=== PATIENT | female | born 1975 | race Caucasian/White ===

== ENCOUNTER 2017-07-25 16:51 | Emergency (ER) | payer OTHER ==
--- NOTE | 2017-07-25 17:20 | UC ---
Respiratory Complaint HPI - HPI Summary HPI Summary: 42 year old female presents with complains of cough and chest congestion. - History of Current Complaint Stated Complaint: COUGH Time Seen by Provider: 07/25/17 17:19 Hx Obtained From: Patient Onset/Duration: Sudden Onset Severity Initially: Moderate Severity Currently: Moderate - Allergies/Home Medications Allergies/Adverse Reactions: Allergies Allergy/AdvReac Type Severity Reaction Status Date / Time Sulfa Antibiotics Allergy Hives Verified 07/25/17 17:30 Review of Systems Constitutional: Negative Skin: Negative Eyes: Negative ENT: Nasal Discharge, Sinus Congestion, Sinus Pain/Tenderness Respiratory: Cough Cardiovascular: Negative Gastrointestinal: Negative Genitourinary: Negative Motor: Negative Neurovascular: Negative Musculoskeletal: Negative Neurological: Negative Psychological: Negative All Other Systems Reviewed And Are Negative: Yes Physical Exam Triage Information Reviewed: Yes Vital Signs Reviewed: Yes Eye Exam: Normal ENT: Positive: Nasal congestion, Nasal drainage, Sinus tenderness Dental Exam: Normal Neck exam: Normal Neck: Positive: 1 Respiratory: Positive: Rhonchi, Wheezing Cardiovascular Exam: Normal Abdominal Exam: Normal Musculoskeletal Exam: Normal Neurological Exam: Normal Psychological Exam: Normal Skin Exam: Normal Respiratory Course/Dx - Differential Dx/Diagnosis Provider Diagnoses: bronchitis Discharge - Discharge Plan Condition: Stable Disposition: HOME Prescriptions: Albuterol HFA INHALER* [Ventolin HFA Inhaler*] 1 puff INH Q6H PRN #1 mdi PRN Reason: Wheezing Azithromyxin ALEA (NF) [Z-Alea (Zithromax) 250 mg tabs #6] 2 tab PO .TODAY, THEN 1 DAILY #6 tab Guaifenesin-Codeine [Cheratussin AC] 1 teasp PO Q8H PRN #120 ml MDD 15 ml PRN Reason: Cough Methylprednisolone [Medrol Dosepak 4 MG*] 4 mg PO .SEE ALEA INSTRUCTION #21 tab Patient Education Materials: Acute Bronchitis (ED), Wheezing (ED) Referrals: No Primary Care Phys,NOPCP [Primary Care Provider] -
== END 2017-07-25 18:46 | disposition home or self-care (01) ==
LOC: UCCORT 16:51
DX: J40 Bronchitis, not specified as acute or chronic (principal); Z88.2 Allergy status to sulfonamides
CPT/HCPCS: 99202; G0463